=== PATIENT | female | born 1980 | race Hispanic/Latino ===

== ENCOUNTER 2021-08-15 18:01 | Inpatient (IN) | payer BC, OTHER ==
--- OUTSIDE RECORDS SUMMARY | 2021-08-15 18:03 | XMS REPORT | Continuity of Care Document ---
:1980 Author Organization [facility] t Address [address] [place] [address] Care Team Providers Name Role Phone Unavailable Unavailable Unavailable Payers Payer Name Policy Type Policy Number Effective Date Expiration Date S ource Problems This patient has no known problems. Allergies, Adverse Reactions, Alerts Allergy Allergy Status Severity Reaction(s) Onset Inactive Treating Comm ents Source Name Type Date Date Clinician Pork/Por FA Active 2018-07 [facility] [place] penicill DA Active 2018-07 [facility] [place] Medications This patient has no known medications. Procedures This patient has no known procedures. Results Test Description Test Time Test Comments Results Result Comments Source GLUBED 2019-04-10 13:15:00 Test Item Value Reference Range Interpretation Comme nts GLUBED (test code = GLUBED) 97 mg/dL 65-110 N [id number] 07:02:00 Test Item Value Reference Range Interpretation Comments GLUBED (test code = GLUBED) 90 mg/dL 65-110 N [id number] 21:30:00 Test Item Value Reference Range Interpretation Comments GLUBED (test code = GLUBED) 87 mg/dL 65-110 N [id number] 17:08:00 Test Item Value Reference Range Interpretation Comments GLUBED (test code = GLUBED) 80 mg/dL 65-110 N [id number] 12:11:00 Test Item Value Reference Range Interpretation Comments GLUBED (test code = GLUBED) 126 mg/dL 65-110 H [id number] 07:31:00 Test Item Value Reference Range Interpretation Comments GLUBED (test code = GLUBED) 103 mg/dL 65-110 N [id number] 21:38:00 Test Item Value Reference Range Interpretation Comments GLUBED (test code = GLUBED) 106 mg/dL 65-110 N [id number] 16:47:00 Test Item Value Reference Range Interpretation Comments GLUBED (test code = GLUBED) 121 mg/dL 65-110 H [id number] 13:19:00 Test Item Value Reference Range Interpretation Comments GLUBED (test code = GLUBED) 53 mg/dL 65-110 L [id number] 09:47:00 Test Item Value Reference Range Interpretation Comments GLUBED (test code = GLUBED) 78 mg/dL 65-110 N FALLOPIAN TUBE,[id number] 08:37:00 RUN DATE: 04/08/19 [facility] PAGE 1 RUN TIME: 1256 Specimen Inquiry RUN USER: INTERFACE PATIENT: DARION LEVINE LOC: MIRANDA U #: [id number] AGE/SX: 38/F ROOM: [facility] RE04/06/19REG DR: Janine Pitt DO : 82 BED: A DIS: STATUS: ADM IN TLOC: SPEC #: [id number] RECD: 04/06/19 STATUS: DOUGLAS MILLER #: [id number] RENAN: 04/06/19- SUBM DR: Janine Pitt DO ENTERED: 04/06/19 SP TYPE: FALLST OTHR DR: ORDERED: LEVEL II SURGIC/2 CODES: [id number] - FALLOPIAN TUBE PROCEDURES: LEVEL II SURGIC (Incomplete) TISSUES: FALLOPIAN TUBE, NOS - BILATERAL FALLOPIAN TUBES CLINICAL HISTORY 38 year old, 39.1 weeks, repeat section, bilateral tubal ligation, , GDM, AMA (angeli) FINAL DIAGNOSIS Specimen #1 right fallopian tube, segmental resection: - histologic - complete lumen demonstrated Specimen #2 left fallopian tube, segmental resection: - histologic - complete lumen demonstrated - benign paratubal cyst CPT code(s): 15060 x2 cds/wpd 04/08/19 GROSS DESCRIPTION ANATOMIC SOURCE OF TISSUE (per Requisition):Left and right fallopian tubes Each specimen is labeled with the patient's name and medical record number. Specimen #1 is designated "right fallopian tube" and consists of a 10.0 cm in length and 0.7 cm in diameter pink-purple and hyperemic fimbriated fallopian tube. The lumen is pinpoint. 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 Specimen #2 is designated "left fallopian tube" and consists of an 8.0 cm in length and 0.7 cm in diameter pink-purple and hyperemic fimbriated fallopian tube. The lumen is pinpoint. Vehicle Leasing And Rental Manager sections are submitted labeled B1. ken/angeli 04/06/19 CONTINUED ON NEXT PAGE RUN DATE: 04/08/19 [facility] PAGE 2 RUN TIME: 1256 Specimen Inquiry RUN USER: INTERFACE SPEC #: [id number] PATIENT: DARION LEVINE #[id number] (Continued)--------- --- MICROSCOPICDESCRIPTION Cross-sections of fallopian tubes are histologic and demonstrate completely transected lumens. patricia/wpmicah 04/08/19 Signed Mark Colvin 04/08/19 0837 END OF REPORT [id number] 06:30:00 Test Item Value Reference Range Interpretation Comments GLUBED (test code = GLUBED) 71 mg/dL 65-110 N [id number] 21:49:00 Test Item Value Reference Range Interpretation Comments GLUBED (test code = GLUBED) 130 mg/dL 65-110 H [id number] [id number] 05:57:00 Test Item Value Reference Range Interpretation Comments HEMOGLOBIN (test code = HGB) 8.9 g/dL 10.7-13.9 L HEMATOCRIT (test code = HCT) 29.0 % 32.1-42.1 L AG HEPATITIS B [id number] 04:50:00 Test Item Value Reference Range Interpretation Comments AG HEPATITIS B SURFACE (test code NONREACTIVE NONREACTIVE = HBSAG) Comments to Doctor Of Osteopathy: LDO AIS CONSENT FORM SIGNED FOR HIV TESTING? YAB HEPATITIS C [id number] 04:50:00 Test Item Value Reference Range Interpretation Comments AB HEPATITIS C (test code = NONREACTIVE NONREACTIVE HCVAB) SIGNAL TO CUTOFF (test code = 0.13 <0.80 N CUTOFF) Comments to Doctor Of Osteopathy: LDO AIS CONSENT FORM SIGNED FOR HIV TESTING? YAB [id number] 04:50:00 Test Item Value Reference Range Interpretation Comments AB TREPONEMA (test code = TREPAB) NONREACTIVE NONREACTIVE Comments to Doctor Of Osteopathy: LDO AIS CONSENT FORM SIGNED FOR HIV TESTING? YAB HIV 1 04:50:00 Test Item Value Reference Range Interpretation Comments AB HIV 1 2 (test NONREACTIVE NONREACTIVE Done by Mik Swanson code = [id number]) 4th Gen HIV Ag/Ab Combo Screen Comments to Doctor Of Osteopathy: LDO AIS CONSENT FORM SIGNED FOR HIV TESTING? YAG HEPATITIS B [id number] 04:08:00 Test Item Value Reference Range Interpretation Comments AG HEPATITIS B SURFACE (test code NONREACTIVE NONREACTIVE = HBSAG) Comments to Doctor Of Osteopathy: LDO AIS CONSENT FORM SIGNED FOR HIV TESTING? YAB HEPATITIS C [id number] 04:08:00 Test Item Value Reference Range Interpretation Comments AB HEPATITIS C (test code = HCVAB) NONREACTIVE SIGNAL TO CUTOFF (test code = CUTOFF) <0.80 Comments to Doctor Of Osteopathy: LDO AIS CONSENT FORM SIGNED FOR HIV TESTING? YAB [id number] 04:08:00 Test Item Value Reference Range Interpretation Comments AB TREPONEMA (test code = TREPAB) NONREACTIVE NONREACTIVE Comments to Doctor Of Osteopathy: LDO AIS CONSENT FORM SIGNED FOR HIV TESTING? YAB HIV 1 04:08:00 Test Item Value Reference Range Interpretation Comments AB HIV 1 2 (test code = [id number]) NONREACTIVE Comments to Doctor Of Osteopathy: LDO AIS CONSENT FORM SIGNED FOR HIV TESTING? Y COMPREHENSIVE METABOLIC [id number] 03:46:00 Test Item Value Reference Range Interpretation Comments SODIUM (test code = NA) 137 mEq/L 135-145 N POTASSIUM (test code = K) 4.1 mEq/L 3.5-5.0 N CHLORIDE (test code = CL) 104 mEq/L 100-115 N CARBON DIOXIDE (test code = CO2) 21 mEq/L 22-31 L ANION GAP (test code = GAP) 15.80 10-20 N GLUCOSE (test code = GLU) 97 mg/dL 65-110 N BLOOD UREA NITROGEN (test code = 10 mg/dL 7-18 N BUN) GLOMERULAR FILTRATION RATE (test 139 ml/min >60 N code = GFR) CREATININE (test code = CREAT) 0.5 mg/dL 0.5-1.0 N TOTAL PROTEIN (test code = PROT) 6.4 gm/dL 6.3-8.2 N ALBUMIN (test code = ALB) 2.3 gm/dL 3.4-4.8 L CALCIUM (test code = CA) 8.2 mg/dL 8.4-10.2 L BILIRUBIN TOTAL (test code = 0.3 mg/dL 0.2-1.0 N BILT) SGOT/AST (test code = AST) 25 units/L 15-37 N SGPT/ALT (test code = ALT) 30 units/L 12-78 N ALKALINE PHOSPHATASE TOTAL (test 204 units/L 46-116 H code = ALKP) LACTIC DEHYDROGENASE(LDH)2019-04-06 03:46:00 Test Item Value Reference Range Interpretation Comments LACTIC DEHYDROGENASE(LDH) (test 181 units/L 81-234 N code = LDH) PROTHROMBIN [id number] 03:41:00 Test Item Value Reference Range Interpretation Comments PROTHROMBIN TIME PATIENT (test code 10.7 secs 10.4-12.4 N = PTP) Comments to Doctor Of Osteopathy: LDO ATHROMBOPLASTIN TIME [id number] 03:41:00 Test Item Value Reference Range Interpretation Comments THROMBOPLASTIN TIME PARTIAL (test 26.8 secs 22-38 N code = PTT) Comments to Doctor Of Osteopathy: LDO [id number] 03:41:00 Test Item Value Reference Range Interpretation Comments FIBRINOGEN (test code = FIB) 666 mg/dL 309-518 H Comments to Doctor Of Osteopathy: LDO ACBC W/AUTO [id number] 03:15:00 Test Item Value Reference Range Interpretation Comments WHITE BLOOD CELL (test code = WBC) 4.6 K/mm3 6.6-12.1 L RED BLOOD CELL (test code = RBC) 4.36 M/mm3 3.45-5.01 N HEMOGLOBIN (test code = HGB) 11.0 g/dL 10.7-13.9 N HEMATOCRIT (test code = HCT) 35.8 % 32.1-42.1 N MEAN CELL VOLUME (test code = MCV) 82 fL 84.1-94.8 L MEAN CELL HGB (test code = MCH) 25.2 pg 27-35 L MEAN CELL HGB CONCETRATION (test 30.7 gm/dL 32.2-34.1 L code = MCHC) RED CELL DISTRIBUTION WIDTH (test 17.1 % 12.4-16.5 H code = RDW) PLATELET COUNT (test code = PLT) 154 K/mm3 133-385 N IMMATURE PLATELET FRACTION (test 0.0 % 0.0-10.8 N code = IPF) MEAN PLATELET VOLUME (test code = 11.3 fl 9.1-12.7 N MPV) NEUTROPHIL % (test code = NT%) 61.2 % 56.5-79.4 N LYMPHOCYTE % (test code = LY%) 29.8 % 14.3-34.3 N MONOCYTE % (test code = MO%) 6.5 % 5.1-10.4 N EOSINOPHIL % (test code = EO%) 0.4 % 0.1-3.0 N BASOPHIL % (test code = BA%) 0.4 % 0.1-1.0 N NEUTROPHIL # (test code = NT#) 2.8 K/mm3 LYMPHOCYTE # (test code = LY#) 1.4 K/mm3 MONOCYTE # (test code = MO#) 0.3 K/mm3 EOSINOPHIL # (test code = EO#) 0.02 K/mm3 BASOPHIL # (test code = BA#) 0.0 K/mm3 RBC MORPHOLOGY REQUIRED (test code NORMAL NORMAL = RBCM) PLATELET MORPHOLOGY REQUIRED (test NORMAL NORMAL code = PLTMR)
[2021-08-15 18:34] LABS: Urine Blood 3+ (Negative); Urine Glucose Negative (Negative); Urine Protein Negative (Negative)
[2021-08-15 18:52] LABS: Absolute Lymphocytes (CBC) 1.5 K/uL (0.7-4.9); Hematocrit 36.3 % (36.0-45.0); Lymphocytes % 24.6 % (15.3-44.8); RBC Red Blood Cell Count 4.93 M/uL (3.86-4.86)
[2021-08-15 19:03] LABS: Urine Bacteria <20 /HPF (<20)
--- NOTE | 2021-08-15 19:22 | RAD REPORT ---
EXAM DESCRIPTION: US - Abdomen Exam Limited - 08/15/2021 7:12 pm CLINICAL HISTORY: ABD PAIN COMPARISON: ABDOMEN W CONTRAST dated 04/19/2012BDOMEN W CONTRAST dated 04/19/2012 FINDINGS: The gallbladder demonstrates no gallstones. No pericholecystic fluid or gallbladder wall t hickening. The common bile duct is normal measuring 5 mm. The liver demonstrates no findings of intrahepatic biliary dilatation. IMPRESSION: Negative for cholelithiasis or acute cholecystitis.
[2021-08-15 20:30] LABS: ALT/SGPT 28 U/L (12-78); AST/SGOT 19 U/L (15-37); Albumin 3.6 g/dL (3.4-5.0); Alkaline Phosphatase 116 U/L (45-117); BUN Blood Urea Nitrogen 8 mg/dL (7-18); Bicarbonate 26 mmol/L (21-32); Bilirubin Direct < 0.1 mg/dL (0-0.2); Bilirubin Total 0.3 mg/dL (0.2-1.0); Glucose Level 118 mg/dL (74-106); Lipase 5229 U/L (73-393); Potassium 3.1 mmol/L (3.5-5.1); Sodium Level 139 mmol/L (136-145)
--- NOTE | 2021-08-15 20:53 | RAD REPORT ---
EXAM DESCRIPTION: CTAbdomen Pelvis W Contrast - 08/15/2021 8:42 pm CLINICAL HISTORY: ABD PAIN COMPARISON: CT ABD PELVIS W CONTRAST dated 03/24/2012 TECHNIQUE: CT of the abdomen and pelvis was performed. All CT scans are performed using dose optimization technique as appropriate and may include automated exposure control or mA/KV adjustment according to patient size. FINDINGS: Lower chest: No acute abnormality. Liver: No acute abnormality or suspicious lesions. Biliary: No biliary ductal dilatation. Stomach: No significant focal abnormality. Duodenum: No significant focal abnormality. Pancreas: No significant abnormality. Spleen: Low-density splenic lesion is unchanged likely benign. Adrenal: No suspicious lesions. Kidney/ureter: No hydronephrosis. No renal calculi. Retroperitoneum: No retroperitoneal adenopathy. Vascular: No aneurysm. Bowel: No significant focal abnormality. Normal appendix . Peritoneum: No ascites or free air. Fat containing umbilical hernia. Bladder: Grossly unremarkable. Reproductive: No adnexal masses. Bones: No acute fracture. Other: n/a IMPRESSION: No acute intra-abdominal or pelvic finding. Normal appendix .
[2021-08-15] MEDS ORDERED: Ringers Lactate 1,000 ML IV ONE (21:00)
--- NOTE | 2021-08-15 21:13 | ER ---
Nurse's Notes [facility] Name: Roxane Washington Age: 41 yrs Sex: Female : 1980 Arrival Date: 08/15/2021 Time: 18:02 Bed 7 Private MD: Diagnosis: Acute Pancreatitis Presentation: 08/15 18:14 Chief complaint: Patient states: she has been having abdominal pain after eating ap3 08/13/2021. Patient reports still having her gallbladder. Coronavirus screen: At this time, the client does not indicate any symptoms associated with coronavirus-19. Ebola Screen: No symptoms or risks identified at this time. Initial Sepsis Screen: Does the patient meet any 2 criteria? No. Patient's initial sepsis screen is negative. Does the patient have a suspected source of infection? No. Patient's initial sepsis screen is negative. Risk Assessment: Do you want to hurt yourself or someone else? Patient reports no desire to harm self or others. Onset of symptoms was August 13, 2021. 18:14 Method Of Arrival: Ambulatory ap3 18:14 Acuity: JONI 3 ap3 Triage Assessment: 18:16 General: Appears in no apparent distress. comfortable, Behavior is calm, cooperative, ap3 appropriate for age. Pain: Complains of pain in epigastric area, right upper quadrant and left upper quadrant Pain currently is 1 out of 10 on a pain scale. at worst was 5 out of 10 on a pain scale. Aggravated by eating. Neuro: Level of Consciousness is awake, alert, obeys commands, Oriented to person, place, time, situation, Appropriate for age Gait is steady, Speech is normal. Cardiovascular: Patient's skin is warm and dry. Respiratory: Airway is patent Respiratory effort is even, unlabored, Respiratory pattern is regular, symmetrical. GI: Patient currently denies nausea, vomiting. 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 - Social history:: Smoking status: Patient denies any tobacco usage or history of. Screenin:18 Abuse screen: Denies threats or abuse. Nutritional screening: No deficits noted. ap3 Tuberculosis screening: No symptoms or risk factors identified. Fall Risk None identified. No fall in past 12 months (0 pts). Assessment: 18:36 General: Appears in no apparent distress. uncomfortable, Behavior is calm, cooperative. ss7 Cardiovascular: No deficits noted. Respiratory: No deficits noted. GI: Bowel sounds Abd is soft and non tender Reports upper abdominal pain. : No deficits noted. EENT: No deficits noted. Derm: No deficits noted. Musculoskeletal: No deficits noted. 20:14 Reassessment: Patient and/or family updated on plan of care and expected duration. Pain sm5 level reassessed. Patient is alert, oriented x 3, equal unlabored respirations, skin warm/dry/pink. 21:30 Reassessment: Patient and/or family updated on plan of care and expected duration. Pain ll3 level reassessed. Patient is alert, oriented x 3, equal unlabored respirations, skin warm/dry/pink. 23:01 Reassessment: Patient and/or family updated on plan of care and expected duration. Pain ll3 level reassessed. Patient is alert, oriented x 3, equal unlabored respirations, skin warm/dry/pink. Vital Signs: 18:14 BP 148 / 108; Pulse 104; Resp 18; Temp 97.8; Pulse Ox 100% ; Weight 61.23 kg; Height 4 ap3 ft. 7 in. (139.70 cm); Pain 1/10; 20:21 BP 128 / 86; Pulse 95; Resp 17; Pulse Ox 100% on R/A; sm5 21:50 BP 121 / 80; Pulse 87; Resp 17; Pulse Ox 100% ; ll3 23:03 BP 122 / 81; Pulse 93; Resp 16; Pulse Ox 98% ; ll3 18:14 Body Mass Index 31.38 (61.23 kg, 139.70 cm) ap3 ED Course: 18:02 Patient arrived in ED. am2 18:07 David Norwood PA is PHCP. [facility] 18:08 Anne Marie Hewitt MD is Attending Physician. [facility] 18:16 Triage completed. ap3 18:16 Arm band placed on right wrist. ap3 18:20 Daquan Tejeda, TIFFANIE is Primary Nurse. bp 18:36 Inserted saline lock: 20 gauge in left antecubital area, using aseptic technique. ss7 19:12 US Abdomen Limited In Process Unspecified. EDMS 20:40 CT Abd/Pelvis - IV Contrast Only In Process Unspecified. EDMS 21:12 Napoleon Torres PA is Hospitalizing Provider. [facility] 21:48 SARS-COV-2 RT PCR (Document "Date of Onset" if Symptomatic) Sent. st1 23:50 Patient has correct armband on for positive identification. Placed in gown. Bed in low ll3 position. Call light in reach. Side rails up X 1. 23:50 No provider procedures requiring assistance completed. Patient admitted, IV remains in ll3 place. No redness/swelling at site. Administered Medications: 21:48 Drug: Lactated Ringers Solution 1000 ml Route: IV; Rate: 1000 bolus; Site: left st1 antecubital; Outcome: 21:13 Decision to Hospitalize by Provider. [facility] 23:50 Admitted to ICU accompanied by nurse, via stretcher, room 6, with chart, Report called ll3 to TIFFANIE Manzano 23:50 Condition: stable 23:50 Discharge instructions given to patient, Instructed on the need for admit, Demonstrated understanding of instructions. 23:51 Patient left the ED. ll3 Signatures: Dispatcher [employer] EDMS David Norwood PA PA Courtney Benavidez am2 Daquan Tejeda, RN RN bp Courtney Mcelroy RN RN ap3 Vernon Mcmillan RN RN ll3 Yudelka Herrera RN RN sm5 Helen Espinal RN RN st1 Jaclyn Hernandez RN RN ss7
--- NOTE | 2021-08-15 21:13 | EDPHYS ---
Physician Documentation [facility] Name: Roxane Washington Age: 41 yrs Sex: Female : 1980 Arrival Date: 08/15/2021 Time: 18:02 Bed 7 Private MD: ED Physician Anne Marie Hewitt HPI: 08/15 18:26 This 41 yrs old Female presents to ER via Ambulatory with complaints of jmm Abdominal Pain. 18:26 The patient presents with abdominal pain. Onset: The symptoms/episode began/occurred jmm gradually, 4 day(s) ago. The symptoms radiate to back. Associated signs and symptoms: Pertinent negatives: diarrhea, vomiting. The symptoms are described as achy. Modifying factors: The symptoms are alleviated by NPO. the symptoms are aggravated by eating. The patient has experienced a previous episode, when diagnosed with pancreatitis in 2011. 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 - Social history:: Smoking status: Patient denies any tobacco usage or history of. ROS: 18:26 Constitutional: Negative for fever, chills, and weight loss, Cardiovascular: Negative jmm for chest pain, palpitations, and edema, Respiratory: Negative for shortness of breath, cough, wheezing, and pleuritic chest pain. 18:26 Abdomen/GI: Positive for abdominal pain. 18:26 All other systems are negative. Exam: 18:26 Constitutional: This is a well developed, well nourished patient who is awake, alert, jmm and in no acute distress. Head/Face: atraumatic. Eyes: EOMI, no conjunctival erythema appreciated ENT: Moist Mucus Membranes Neck: Trachea midline, Supple Chest/axilla: Normal chest wall appearance and motion. Cardiovascular: Regular rate and rhythm. No edema appreciated Respiratory: Normal respirations, no respiratory distress appreciated 18:26 Back: Normal ROM Skin: General appearance color normal MS/ Extremity: Moves all extremities, no obvious deformities appreciated, no edema noted to the lower extremities Neuro: Awake and alert Psych: Behavior is normal, Mood is normal, Patient is cooperative and pleasant 18:26 Abdomen/GI: Inspection: obese Bowel sounds: normal, Palpation: soft, mild abdominal tenderness, in the epigastric area. Vital Signs: 18:14 BP 148 / 108; Pulse 104; Resp 18; Temp 97.8; Pulse Ox 100% ; Weight 61.23 kg; Height 4 ap3 ft. 7 in. (139.70 cm); Pain 1/10; 20:21 BP 128 / 86; Pulse 95; Resp 17; Pulse Ox 100% on R/A; sm5 21:50 BP 121 / 80; Pulse 87; Resp 17; Pulse Ox 100% ; ll3 23:03 BP 122 / 81; Pulse 93; Resp 16; Pulse Ox 98% ; ll3 18:14 Body Mass Index 31.38 (61.23 kg, 139.70 cm) ap3 MDM: 18:31 Patient medically screened. ken 21:11 Data reviewed: vital signs, nurses notes. Counseling: I had a detailed discussion with ariane the patient and/or guardian regarding: the historical points, exam findings, and any diagnostic results supporting the discharge/admit diagnosis, lab results, radiology results, the need for further work-up and treatment in the hospital. ED course: I discussed the patient with Napoleon Torres whom accepted the patient for admission. 08/15 18:26 Order name: Basic Metabolic Panel; Complete Time: 20:32 [facility] 08/15 18:26 Order name: CBC with Diff; Complete Time: 20:23 [facility] 08/15 18:26 Order name: Hepatic Function; Complete Time: 20:32 [facility] 08/15 18:26 Order name: Lipase; Complete Time: 20:32 [facility] 08/15 18:34 Order name: Urine Dipstick-Ancillary; Complete Time: 20:23 [facility] 08/15 18:34 Order name: Urine Microscopic Only; Complete Time: 20:23 [facility] 08/15 18:26 Order name: IV Saline Lock; Complete Time: 18:37 [facility] 08/15 18:34 Order name: US Abdomen Limited; Complete Time: 20:23 [facility] 08/15 18:34 Order name: CT Abd/Pelvis - IV Contrast Only; Complete Time: 20:54 [facility] 08/15 18:34 Order name: Urine Culture [facility] 08/15 18:35 Order name: Urine --Ancillary (enter results); Complete Time: 20:33 em1 08/15 21:10 Order name: SARS-COV-2 RT PCR (Document "Date of Onset" if Symptomatic) [facility] 08/15 21:10 Order name: SARS-COV-2 RT PCR; Complete Time: 22:58 EDMS 08/15 18:26 Order name: Labs collected and sent; Complete Time: 18:37 [facility] 08/15 18:34 Order name: Urine Dipstick-Ancillary (obtain specimen); Complete Time: 18:36 [facility] Administered Medications: 21:48 Drug: Lactated Ringers Solution 1000 ml Route: IV; Rate: 1000 bolus; Site: left st1 antecubital; Disposition: 08/16 12:55 Co-signature as Attending Physician, Anne Marie Hewitt MD I agree with the assessment and sp3 plan of care. Disposition Summary: 08/15/21 21:13 Hospitalization Ordered Hospitalization Status: Observation [facility] Provider: Napoleon Torres Condition: Stable [facility] Problem: new [facility] Symptoms: are unchanged [facility] Bed/Room Type: Standard [facility] Location: Intensive Care Unit(08/15/21 22:55) eb1 Room Assignment: 6-(08/15/21 22:55) eb Diagnosis - Acute Pancreatitis [facility] Forms: - Medication Reconciliation Form [facility] - SBAR form [facility] Signatures: Dispatcher [employer] EDMS David Norwood PA PA Courtney Booker RN RN ap3 Marisol Barron RN RN eb1 Anne Marie Hewitt MD MD sp3 Helen Espinal RN RN st1 Corrections: (The following items were deleted from the chart) 08/15 22:55 21:13 Telemetry/MedSurg (observation) [facility] eb 22:55 21:13 [facility] eb1
--- NOTE | 2021-08-15 21:51 | P.HP ---
Certification for Inpatient Patient admitted to: Observation With expected LOS: <2 Midnights Patient will require the following post-hospital care: None Practitioner: I am a practitioner with admitting privileges, knowledge of patient current condition, hospital course, and medical plan of care. Services: Services provided to patient in accordance with Admission requirements found in Title 42 Section 412.3 of the Code of Federal Regulations <Napoleon Torres Mik - Last Filed: 08/15/21 21:48> Patient History Date of Service: 08/15/21 Reason for admission: pancreatitis History of Present Illness: Ms. Washington is a 41 yo F with history of pancreatitis in 2011 who presents with epigastric abdominal pain radiating to her back beginning on Thursday. Pain is worth with solid foods so she has only been drinking liquids. Denies fever, nausea, and vomiting. K 3.1 Lipase 5529. CTAP and Abdominal US without acute findings. - Past Medical/Surgical History Diabetic: No -: Umbilical Hernia -: Sinus tachycardia -: Anti-M Ab -: pancreatitis -: 2 c sections - Family History Mother -: Heart disease, Hypertension Father -: Heart disease, Hypertension - Social History Smoking Status: Never smoker Alcohol use: No CD- Drugs: No Caffeine use: No Place of Residence: Home <Desi Torresradha Houser - Last Filed: 08/15/21 21:48> Date of Service: 08/15/21 <Alexey Holbrook - Last Filed: 08/19/21 03:00> Allergies Penicillins Allergy (Verified 03/24/12 16:32) face swells Home Medications: Ferrous Sulfate [Iron] 325 mg PO DAILY 07/28/17 Ibuprofen [Motrin] 800 mg PO Q8H PRN #45 tablet 07/31/17 Review of Systems 10-point ROS is otherwise unremarkable General: Unremarkable Eyes: Unremarkable ENT: Unremarkable Respiratory: Unremarkable Cardiovascular: Unremarkable Gastrointestinal: Abdominal Pain Genitourinary: Unremarkable Musculoskeletal: Unremarkable Integumentary: Unremarkable Neurological: Unremarkable Lymphatics: Unremarkable <BrianNapoleon - Last Filed: 08/15/21 21:48> Physical Examination - Physical Exam General: Alert, In no apparent distress HEENT: Atraumatic, PERRLA, Mucous membr. moist/pink, EOMI, Sclerae nonicteric Neck: Supple, 2+ carotid pulse no bruit, No LAD, Without JVD or thyroid abnormality Respiratory: Clear to auscultation bilaterally, Normal air movement Cardiovascular: Regular rate/rhythm, Normal S1 S2 Gastrointestinal: Normal bowel sounds, No tenderness Musculoskeletal: No tenderness Integumentary: No rashes Neurological: Normal speech, Normal strength at 5/5 x4 extr, Normal tone, Normal affect Lymphatics: No axilla or inguinal lymphadenopathy - Studies Laboratory Data (last 24 hrs) 08/15/21 18:34: WBC 6.20, Hgb 11.4 L, Hct 36.3, Plt Count 292 08/15/21 18:34: Sodium 139, Potassium 3.1 L, BUN 8, Creatinine 0.59, Glucose 118 H, Total Bilirubin 0.3, AST 19, ALT 28, Alkaline Phosphatase 116, Lipase 5229 H <Napoleon Torres - Last Filed: 08/15/21 21:48> - Studies Microbiology Data (last 24 hrs): 08/15/21 18:40 Clean Catch Urine Sidney Count - Final >100,000 CFU/ML. 08/15/21 18:40 Clean Catch Urine - Final MIXED MURIEL. <Alexey Holbrook - Last Filed: 08/19/21 03:00> Assessment and Plan - Problems (Diagnosis) (1) Pancreatitis Current Visit: Yes Status: Acute Qualifiers: Chronicity: acute Pancreatitis type: unspecified pancreatitis type Acute pancreatitis complication: no infection or necrosis Qualified Code(s): K85.90 - Acute pancreatitis without necrosis or infection, unspecified - Plan continue IV fluid hydration pain management as needed lipid profile pending recheck amylase and lipase in the AM advance diet as tolerated anemia workup pending k replacement dvt prophylaxis Discharge Plan: Home Plan to discharge in: 24 Hours - Advance Directives Does patient have a Living Will: No Does patient have a Durable POA for Healthcare: No - Code Status/Comfort Care Code Status Assessed: Yes (full code ) Critical Care: No Time Spent Managing Pts Care (In Minutes): 70 <Napoleon Torres - Last Filed: 08/15/21 21:48> - Problems (Diagnosis) (1) Pancreatitis Current Visit: Yes Status: Acute Qualifiers: Chronicity: acute Pancreatitis type: unspecified pancreatitis type Acute pancreatitis complication: no infection or necrosis Qualified Code(s): K85.90 - Acute pancreatitis without necrosis or infection, unspecified <Alexey Holbrook - Last Filed: 08/19/21 03:00> Date of Service: 08/15/21 Subjective HPI as mentioned above Review of Systems 10-point ROS is otherwise unremarkable Physical Examination - Vital Signs Reviewed - Physical Exam General: Alert, In no apparent distress HEENT: Atraumatic, PERRLA, EOMI Neck: Supple, JVD not distended Respiratory: Clear to auscultation bilaterally, Normal air movement Cardiovascular: Regular rate/rhythm, Normal S1 S2 Gastrointestinal: Normal bowel sounds, Tenderness Musculoskeletal: No tenderness Integumentary: No rashes Neurological: Normal speech, Normal tone, Normal affect Lymphatics: No axilla or inguinal lymphadenopathy - Studies Laboratory Data (last 24 hrs) 08/16/21 04:57: Sodium 139, Potassium 3.7, BUN 6 L, Creatinine 0.50 L, Glucose 110 H, Total Bilirubin 0.4, AST 20, ALT 26, Alkaline Phosphatase 103, Amylase 435 H*, Lipase 3344 H 08/16/21 04:57: WBC 4.80 D, Hgb 10.9 L, Hct 34.3 L, Plt Count 265 08/16/21 04:57: Triglycerides 102, Cholesterol 164, HDL Cholesterol 48, Cholesterol/HDL Ratio 3.42 08/15/21 18:34: Sodium 139, Potassium 3.1 L, BUN 8, Creatinine 0.59, Glucose 118 H, Total Bilirubin 0.3, AST 19, ALT 28, Alkaline Phosphatase 116, Lipase 5229 H Medications List Reviewed: Yes Assessment & Plan - Problems (Diagnosis) (1) Pancreatitis Current Visit: Yes Status: Acute Qualifiers: Chronicity: acute Pancreatitis type: unspecified pancreatitis type Acute pancreatitis complication: no infection or necrosis Qualified Code(s): K85.90 - Acute pancreatitis without necrosis or infection, unspecified - Plan Plan of care as mentioned above - Advance Directives Does patient have a Living Will: No Does patient have a Durable POA for Healthcare: No <Alexey Holbrook - Last Filed: 08/19/21 03:00>
[2021-08-15] MEDS ORDERED: KCL 20 MEQ/100 mL IVPB 20 MEQ/100 ML BAG IV SCH (23:47)
[2021-08-15] MEDS ORDERED: MORPHINE 2 MG/ML SYR IV PRN (23:47)
[2021-08-15] MEDS ORDERED: ONDANSETRON 4 MG/2 ML VIAL IV PRN (23:47)
[2021-08-15] MEDS ORDERED: NA CHLORIDE 0.9% 1,000 ML ONE (23:53)
[2021-08-15] MEDS ORDERED: KCL 20 MEQ/100 mL IVPB 100 ML IV ONE (23:55)
[2021-08-15] MEDS: NA CHLORIDE 0.9% 1,000 ML IV SCH (23:57)
[2021-08-16 00:42] VITALS: BMI 31.4
[2021-08-16 03:35] LABS: Urine Appearance CLOUDY (Clear); Urine Bilirubin NEGATIVE (Negative); Urine Blood 3+ (Negative); Urine Color YELLOW (Yellow); Urine Glucose NEGATIVE (Negative); Urine Protein NEGATIVE (Negative); Urine Specific Gravity 1.015 (1.005-1.030); Urine Urobilinogen 0.2 mg/dL (0.2-1.0); Urine pH 7.5 (5.0-7.0)
[2021-08-16 03:43] LABS: Urine Microscopic Reflex ORDER UMIC
[2021-08-16 04:31] LABS: Urine Bacteria <20 /HPF (<20); Urine RBC >50 /HPF (NONE SEEN)
[2021-08-16 05:33] LABS: Absolute Lymphocytes (CBC) 1.3 K/uL (0.7-4.9); Hematocrit 34.3 % (36.0-45.0); Lymphocytes % 26.5 % (15.3-44.8); MPV 7.1 fL (7.6-11.3); RBC Red Blood Cell Count 4.68 M/uL (3.86-4.86)
[2021-08-16 06:14] LABS: ALT/SGPT 26 U/L (12-78); AST/SGOT 20 U/L (15-37); Alkaline Phosphatase 103 U/L (45-117); BUN Blood Urea Nitrogen 6 mg/dL (7-18); Bicarbonate 23 mmol/L (21-32); Bilirubin Total 0.4 mg/dL (0.2-1.0); Ferritin 9.2 ng/mL (8-388); Glucose Level 110 mg/dL (74-106); Lipase 3344 U/L (73-393); Potassium 3.7 mmol/L (3.5-5.1); Protein, Total 7.1 g/dL (6.4-8.2); Sodium Level 139 mmol/L (136-145); Transferrin 274 mg/dL (200-360)
[2021-08-16 06:16] LABS: Amylase 435 U/L (25-115)
[2021-08-16] MEDS: NA CHLORIDE 0.9% 1,000 ML IV SCH ×2 (07:41→17:02)
[2021-08-16] MEDS: ENOXAPARIN 40 MG/0.4 ML SQ SCH (07:41)
[2021-08-16] MEDS ORDERED: KCL 20 MEQ/100 mL IVPB 20 MEQ/100 ML BAG IV SCH (08:00)
--- NOTE | 2021-08-16 20:20 | P.PN ---
Subjective Date of Service: 08/16/21 Subjective: Improving still with abdominal pain Review of Systems 10-point ROS is otherwise unremarkable Physical Examination - Vital Signs Temperature: 97.4 F Blood Pressure: 133/88 Pulse: 89 Respirations: 18 Pulse Ox (%): 98 - Physical Exam General: Alert, In no apparent distress HEENT: Atraumatic, PERRLA, EOMI Neck: Supple, JVD not distended Respiratory: Clear to auscultation bilaterally, Normal air movement Cardiovascular: Regular rate/rhythm, Normal S1 S2 Gastrointestinal: Normal bowel sounds, Tenderness Musculoskeletal: No tenderness Integumentary: No rashes Neurological: Normal speech, Normal tone, Normal affect Lymphatics: No axilla or inguinal lymphadenopathy - Studies Laboratory Data (last 24 hrs) 08/16/21 04:57: Sodium 139, Potassium 3.7, BUN 6 L, Creatinine 0.50 L, Glucose 110 H, Total Bilirubin 0.4, AST 20, ALT 26, Alkaline Phosphatase 103, Amylase 435 H*, Lipase 3344 H 08/16/21 04:57: WBC 4.80 D, Hgb 10.9 L, Hct 34.3 L, Plt Count 265 08/16/21 04:57: Triglycerides 102, Cholesterol 164, HDL Cholesterol 48, Cholesterol/HDL Ratio 3.42 08/15/21 18:34: Sodium 139, Potassium 3.1 L, BUN 8, Creatinine 0.59, Glucose 118 H, Total Bilirubin 0.3, AST 19, ALT 28, Alkaline Phosphatase 116, Lipase 5229 H Medications List Reviewed: Yes Assessment & Plan - Problems (Diagnosis) (1) Pancreatitis Current Visit: Yes Status: Acute Qualifiers: Chronicity: acute Pancreatitis type: unspecified pancreatitis type Acute pancreatitis complication: no infection or necrosis Qualified Code(s): K85.90 - Acute pancreatitis without necrosis or infection, unspecified - Plan -aggressive IV hydration -pain controlled -monitor lipase -GI consultation if pain does not improve -CT abdomen pelvis reviewed - Advance Directives Does patient have a Living Will: No Does patient have a Durable POA for Healthcare: No
[2021-08-17] MEDS: NA CHLORIDE 0.9% 1,000 ML IV SCH ×4 (00:31→23:47)
[2021-08-17 06:30] LABS: Absolute Lymphocytes (CBC) 1.2 K/uL (0.7-4.9); Lymphocytes % 25.8 % (15.3-44.8); MPV 7.1 fL (7.6-11.3); RBC Red Blood Cell Count 4.61 M/uL (3.86-4.86)
[2021-08-17 07:02] LABS: ALT/SGPT 24 U/L (12-78); AST/SGOT 17 U/L (15-37); Albumin 2.8 g/dL (3.4-5.0); Alkaline Phosphatase 98 U/L (45-117); BUN Blood Urea Nitrogen 6 mg/dL (7-18); Bicarbonate 22 mmol/L (21-32); Bilirubin Total 0.3 mg/dL (0.2-1.0); Glucose Level 110 mg/dL (74-106); Lipase 5402 U/L (73-393); Potassium 3.5 mmol/L (3.5-5.1); Protein, Total 6.8 g/dL (6.4-8.2); Sodium Level 139 mmol/L (136-145)
[2021-08-17] MEDS: ENOXAPARIN 40 MG/0.4 ML SQ SCH (08:17)
[2021-08-17] MEDS ORDERED: NA CHLORIDE 0.9% 500 ML IV ONE ×2 (11:09→23:18)
[2021-08-17] MEDS: ACETAMINOPHEN 500 MG TAB PO PRN ×2 (12:20→20:58)
--- NOTE | 2021-08-17 23:21 | P.PN ---
Date of Service: 08/17/21 Subjective Subjective: lipase elevated; labs are stable Review of Systems 10-point ROS is otherwise unremarkable Physical Examination - Vital Signs reviewed - Physical Exam General: Alert, In no apparent distress Respiratory: Clear to auscultation bilaterally, Normal air movement Cardiovascular: Regular rate/rhythm, Normal S1 S2 Gastrointestinal: Normal bowel sounds, Tenderness Neurological: Normal speech, Normal tone, Normal affect Assessment & Plan - Problems (Diagnosis) (1) Pancreatitis Current Visit: Yes Status: Acute Qualifiers: Chronicity: acute Pancreatitis type: unspecified pancreatitis type Acute pancreatitis complication: no infection or necrosis Qualified Code(s): K85.90 - Acute pancreatitis without necrosis or infection, unspecified - Plan -will need ERCP/MRCP as an outpt -aggressive IV hydration -pain controlled -monitor lipase -GI consultation if pain does not improve -CT abdomen pelvis reviewed
[2021-08-18] MEDS ORDERED: NA CHLORIDE 0.9% 1,000 ML ONE (02:53)
[2021-08-18 06:21] LABS: Absolute Lymphocytes (CBC) 1.5 K/uL (0.7-4.9); Hematocrit 33.5 % (36.0-45.0); Lymphocytes % 28.8 % (15.3-44.8); MPV 6.8 fL (7.6-11.3); RBC Red Blood Cell Count 4.57 M/uL (3.86-4.86)
[2021-08-18 06:41] LABS: ALT/SGPT 21 U/L (12-78); AST/SGOT 14 U/L (15-37); Albumin 2.9 g/dL (3.4-5.0); Alkaline Phosphatase 100 U/L (45-117); BUN Blood Urea Nitrogen 4 mg/dL (7-18); Bicarbonate 22 mmol/L (21-32); Bilirubin Total 0.4 mg/dL (0.2-1.0); Glucose Level 90 mg/dL (74-106); Lipase 4226 U/L (73-393); Magnesium 1.8 mg/dL (1.8-2.4); NT PRO-BNP 19 pg/mL (<125); Potassium 3.1 mmol/L (3.5-5.1); Protein, Total 6.8 g/dL (6.4-8.2); Sodium Level 138 mmol/L (136-145)
[2021-08-18] MEDS: ENOXAPARIN 40 MG/0.4 ML SQ SCH (08:29)
[2021-08-18] MEDS ORDERED: POTASSIUM CL SA 10 MEQ TAB PO ONE ×2 (09:00→15:30)
[2021-08-18] MEDS ORDERED: PNEUMOCOCCAL VACCINE 0.5 ML IMVAC ONE (09:00)
[2021-08-18] MEDS ORDERED: MAGNESIUM SULFATE 1 gm IVPB 1 GM/100 ML BAG IV ONE (09:00)
[2021-08-18] MEDS: NA CHLORIDE 0.9% 1,000 ML IV SCH ×3 (11:34→21:33)
[2021-08-18] MEDS: ACETAMINOPHEN 500 MG TAB PO PRN ×2 (17:21→23:42)
--- NOTE | 2021-08-18 20:56 | P.PN ---
Date of Service: 08/18/21 Subjective Subjective: Patient's lipase is elevated; this is improved. MRCP pending; Review of Systems 10-point ROS is otherwise unremarkable Physical Examination - Vital Signs reviewed - Physical Exam General: Alert, In no apparent distress Respiratory: Clear to auscultation bilaterally, Normal air movement Cardiovascular: Regular rate/rhythm, Normal S1 S2 Gastrointestinal: Normal bowel sounds, Tenderness Neurological: Normal speech, Normal tone, Normal affect Assessment & Plan - Problems (Diagnosis) (1) Pancreatitis Current Visit: Yes Status: Acute Qualifiers: Chronicity: acute Pancreatitis type: unspecified pancreatitis type Acute pancreatitis complication: no infection or necrosis Qualified Code(s): K85.90 - Acute pancreatitis without necrosis or infection, unspecified - Plan -will need MRCP -aggressive IV hydration -pain controlled -monitor lipase -GI consultation in am -CT abdomen pelvis reviewed
[2021-08-19] MEDS: NA CHLORIDE 0.9% 1,000 ML IV SCH ×2 (05:32→14:23)
[2021-08-19 06:14] LABS: RBC Red Blood Cell Count 4.63 M/uL (3.86-4.86)
--- NOTE | 2021-08-19 06:18 | P.PN ---
Date of Service: 08/19/21 Subjective: No acute events overnight Continues to have some mild pulsating-like discomfort in her upper abdomen N.p.o. overnight for MRCP this morning No nausea/vomiting ROS: 10 point ROS as noted above, otherwise negative Physical exam GEN: Alert, oriented, NAD HEENT: Normal conjunctiva, sclera anicteric CV: Regular rate and rhythm, no edema Pulm: Nonlabored respirations on room air ABD: Soft, mild TTP in epigastrium, non-distended Neuro: Normal speech, normal affect Problem List Acute pancreatitis Overall seems to be slowly improving Continue with IV fluids Not much pain/discomfort at this time MRCP to be done this morning GI consulted, due to ongoing discomfort and elevated lipase CT abdomen/pelvis negative for any acute findings on admission Clear liquid diet after MRCP pending findings Code: full Dispo: Anticipate DC home in 1-2 days Time Spent Managing Pts Care (In Minutes): 35
[2021-08-19 06:29] LABS: ALT/SGPT 20 U/L (12-78); AST/SGOT 15 U/L (15-37); Albumin 2.9 g/dL (3.4-5.0); Alkaline Phosphatase 101 U/L (45-117); BUN Blood Urea Nitrogen 4 mg/dL (7-18); Bicarbonate 23 mmol/L (21-32); Bilirubin Total 0.4 mg/dL (0.2-1.0); Glucose Level 108 mg/dL (74-106); Lipase 4194 U/L (73-393); Potassium 3.8 mmol/L (3.5-5.1); Protein, Total 6.9 g/dL (6.4-8.2); Sodium Level 138 mmol/L (136-145)
[2021-08-19] MEDS: ENOXAPARIN 40 MG/0.4 ML SQ SCH (08:40)
--- NOTE | 2021-08-19 10:28 | RAD REPORT ---
EXAM DESCRIPTION: MRI - Cholangiogram - 08/19/2021 10:21 am CLINICAL HISTORY: pancreatitis COMPARISON: Abdomen Pelvis W Contrast dated 08/15/2021 FINDINGS: Three-dimensional MRCP was performed using maximum intensity projection reconstruction on the same work station. No intrahepatic biliary tree dilatation is seen. The common bile duct is normal caliber without evide nce of retained stone, stricture or mass. The pancreatic duct is not pathologically dilated. The gallbladder is unremarkable. Limited T2 sequences through the abdomen demonstrates no bulky adenopathy, significant free fluid or abscess. IMPRESSION: Negative MR cholangiogram.
[2021-08-19] MEDS: Ringers Lactate 1,000 ML IV SCH (16:41)
[2021-08-19] MEDS ORDERED: Ringers Lactate 250 ML IV SCH (17:00)
[2021-08-19] MEDS ORDERED: Ringers Lactate 500 ML IV SCH (17:00)
[2021-08-19] MEDS ORDERED: POTASSIUM CL SA 10 MEQ TAB PO ONE (17:00)
[2021-08-20] MEDS: ACETAMINOPHEN 500 MG TAB PO PRN (00:20)
[2021-08-20 02:47] VITALS: O2SAT 98
[2021-08-20 06:07] LABS: ALT/SGPT 22 U/L (12-78); AST/SGOT 18 U/L (15-37); Albumin 2.9 g/dL (3.4-5.0); Alkaline Phosphatase 104 U/L (45-117); BUN Blood Urea Nitrogen 4 mg/dL (7-18); Bicarbonate 25 mmol/L (21-32); Bilirubin Total 0.5 mg/dL (0.2-1.0); Glucose Level 110 mg/dL (74-106); Lipase 3489 U/L (73-393); Potassium 3.3 mmol/L (3.5-5.1); Sodium Level 138 mmol/L (136-145)
--- NOTE | 2021-08-20 06:30 | P.PN ---
Date of Service: 08/20/21 Subjective: ROS: 10 point ROS as noted above, otherwise negative Physical exam GEN: Alert, oriented, NAD HEENT: Normal conjunctiva, sclera anicteric CV: Regular rate and rhythm, no edema Pulm: Nonlabored respirations on room air ABD: Soft, mild TTP in epigastrium, non-distended Neuro: Normal speech, normal affect Problem List Acute pancreatitis Overall seems to be slowly improving Continue with IV fluids Not much pain/discomfort at this time MRCP to be done this morning GI consulted, due to ongoing discomfort and elevated lipase CT abdomen/pelvis negative for any acute findings on admission Clear liquid diet after MRCP pending findings Code: full Dispo: Anticipate DC home in 1-2 days Time Spent Managing Pts Care (In Minutes): 35
[2021-08-20] MEDS ORDERED: POTASSIUM CL SA 10 MEQ TAB PO ONE (09:00)
[2021-08-20] MEDS: Ringers Lactate 1,000 ML IV SCH ×2 (09:00→09:06)
[2021-08-20] MEDS: ENOXAPARIN 40 MG/0.4 ML SQ SCH (09:00)
[2021-08-20 13:11] VITALS: BP 134/86; TEMP 98.6
--- NOTE | 2021-08-20 18:38 | P.DS ---
Admission Date: 08/16/21 Discharge Date: 08/20/21 Disposition: ROUTINE DISCHARGE Discharge Condition: GOOD Reason for Admission: pancreatitis Consultations: GI - Dr. Delgado Procedures: Problem list Acute pancreatitis Brief History of Present Illness: 41 yo F with history of pancreatitis in 2011 who presents with epigastric abdominal pain radiating to her back beginning on Thursday. Pain is worth with solid foods so she has only been drinking liquids. Denies fever, nausea, and vomiting. K 3.1 Lipase 5529. CTAP and Abdominal US without acute findings. Hospital Course: Patient was found to have acute pancreatitis with elevated lipase levels. CT abdomen/pelvis did not reveal any concerning findings. Her symptoms and elevated lipase persisted, so a MRCP was performed and negative for any acute findings. GI was consulted, and patient was given additional IV fluids with further improvement of her symptoms. Diet was advanced to full liquids which she tolerated well. Reported some mild pulsatile discomfort in her upper abdomen intermittently. Patient was deemed stable for discharge home, to continue on low fat diet. Follow up with GI in the next few weeks. Vital Signs/Physical Exam: Temp Pulse Resp BP Pulse Ox 98.6 F 87 18 134/86 99 08/20/21 12:00 08/20/21 12:00 08/20/21 12:00 08/20/21 12:00 08/20/21 12:00 General: Alert, In no apparent distress HEENT: Mucous membr. moist/pink, Sclerae nonicteric Respiratory: Clear to auscultation bilaterally, Normal air movement Cardiovascular: No edema, Regular rate/rhythm Gastrointestinal: Soft and benign, Non-distended, No tenderness Musculoskeletal: No erythema, No tenderness Integumentary: No rashes, No significant lesion Neurological: Normal speech, Normal affect Laboratory Data at Discharge: WBC 5.50 K/uL (4.3-10.9) 08/19/21 05:32 Hgb 10.9 g/dL (12.0-15.0) L 08/19/21 05:32 Hct 34.0 % (36.0-45.0) L 08/19/21 05:32 Plt Count 266 K/uL (152-406) 08/19/21 05:32 Sodium 138 mmol/L (136-145) 08/20/21 05:08 Potassium Cancelled 08/20/21 15:00 BUN 4 mg/dL (7-18) L 08/20/21 05:08 Creatinine 0.56 mg/dL (0.55-1.3) 08/20/21 05:08 Glucose 110 mg/dL (74-106) H 08/20/21 05:08 Magnesium 2.0 mg/dL (1.8-2.4) 08/19/21 05:32 Total Bilirubin 0.5 mg/dL (0.2-1.0) 08/20/21 05:08 AST 18 U/L (15-37) 08/20/21 05:08 ALT 22 U/L (12-78) 08/20/21 05:08 Alkaline Phosphatase 104 U/L (45-117) 08/20/21 05:08 Triglycerides 102 mg/dL (<150) 08/16/21 04:57 Cholesterol 164 mg/dL (<200) 08/16/21 04:57 HDL Cholesterol 48 mg/dL (40-60) 08/16/21 04:57 Cholesterol/HDL Ratio 3.42 08/16/21 04:57 Amylase 435 U/L (25-115) H* 08/16/21 04:57 Lipase 3489 U/L (73-393) H 08/20/21 05:08 Home Medications: Ferrous Sulfate [Iron] 325 mg PO DAILY 07/28/17 Ibuprofen [Motrin] 800 mg PO Q8H PRN #45 tablet 07/31/17 Physician Discharge Instructions: Patient was found to have acute pancreatitis with elevated lipase levels. CT abdomen/pelvis did not reveal any concerning findings. Her symptoms and elevated lipase persisted, so a MRCP was performed and negative for any acute findings. GI was consulted, and patient was given additional IV fluids with further improvement of her symptoms. Diet was advanced to full liquids which she tolerated well. Reported some mild pulsatile discomfort in her upper abdomen intermittently. Patient was deemed stable for discharge home, to continue on low fat diet. Follow up with GI in the next few weeks. Diet: low fat Activity: Ad radha Followup: NONE,NONE [Primary Care Provider] - Cabrera Delgado MD [ACTIVE - CAN ADMIT] - Time spent managing pt's care (in minutes): 45
== END 2021-08-20 02:00 | disposition home or self-care (01) | DRG 440 ==
LOC: ER 18:01 → ERHOLD 21:57 → 3RD-ICU 23:14 → OBSVTOIN 08-16 10:47 → 2ND 08-16 13:25
PROVIDERS: ADMIT Hospitalist; ATTEND Hospitalist
DX: K85.90 Acute pancreatitis without necrosis or infection, unspecified (principal); Z20.822 Contact with and (suspected) exposure to COVID-19
CPT/HCPCS: 36415; 74177; 74181; 76705; 80048; 80053; 80061; 80076; 81003; 81015; 81025; 82150; 82728; 82947; 83540; 83690; 83735; 83880; 84132; 84466; 85025; 85027; 87086; 87088; 99285; G0378; J1650; J2270; J3475; J3480; J7030; J7040; J7120; Q9967; U0003